=== PATIENT | male | born 1995 | race Caucasian/White ===

== ENCOUNTER 2019-03-08 19:49 | Emergency (ER) | payer MEDICAID, SELFPAY ==
[2019-03-08 19:51] VITALS: BP 140/78; PULSE 77; RESP 16; TEMP 36.6; O2SAT 97; BMI 22.6
--- NOTE | 2019-03-08 20:06 | ED.DCSUM_ITS ---
History of Present Illness Chief Complaint: Substance Abuse Detail of Chief Complaint: Snorted heroin and methamphetamine Informant: Patient Limited by: Stupor Onset: Today, Month(s) - States he has been using illicit drugs for the last 5 months Context: Sudden Onset Timing: Continuous Quality: Arrived by ambulance for drug use. Location: Unknown Current Severity: Moderate Maximum Severity: Moderate Worsened by: Presumed heroin Relieved by: IV Narcan Associated Symptoms: Somnolence and disorientation Narrative: Patient is a 23-year-old male who is slurring his words. Requires constant st imulation and redirection to answer simple questions. He acknowledged he snorted methamphetamine and heroin tonight. He gets his drugs from multiple suppliers. He states he does not inject. History is limited because of somnolence. He has beck on his skin. He was again question whether he is injecting. He admits to picking his skin. Prior similar symptoms: No Recent Illness/Hospitalization: No - Past Medical History (1) History of illicit drug use Status: Acute Past Medical History - Allergies and Home Meds Allergies/Adverse Reactions: Allergies No Known Allergies Allergy (Verified 03/08/19 19:50) Primary Care Physician: Care Physician,No Primary [Primary Care Provider] - Surgical History: no surgical history Lives: Alone Smoking Status: Current every day smoker Alcohol: Rare Drugs: Heroin, - - Methamphetamine Review of Systems ROS: Unable to Obtain - Limited secondary to somnolence from illicit drug use General: Denies: Fever Eyes: Denies: Visual changes - bilaterally, Blurred Vision - bilaterally ENT: Denies: Rhinorrhea, Sore throat Cardiovascular: Denies: Chest pain Respiratory: Denies: Dyspnea, Cough Gastrointestinal: Reports: Nausea. Denies: Abdominal pain, Vomiting Musculoskeletal: Denies: Myalgias, Arthralgias Skin: Reports: Wounds Neurological: Denies: Headache Allergy: Denies: Uticaria, Swelling of the mouth, Swelling of the tongue Physical Exam Vital Signs/Narrative: Vital Signs Temp Pulse Resp BP Pulse Ox 03/08/19 19:51 97.9 F 77 16 140/78 H 97 Inital Vital Signs reviewed: Yes General: Well nourished, Well developed, No Acute Distress Head: Normocephalic, Atraumatic Eyes: - - Pulls are 1 to 2 mm in size.. Negative for: Pale conjunctiva, Scleral icterus ENT: Moist mucous membranes, No rhinorrhea, TM's clear Neck: Supple, Nontender, No lymphadenopathy, No JVD Cardiovascular: Regular rate, Regular rhythm, No murmurs, Normal S1, Normal S2. Negative for: Murmur Respiratory: No distress, CTA bilaterally, Chest nontender Abdomen: Soft, Nontender, Nondistended, Normal bowel sounds Extremities: Nontender, No edema Skin: Normal color, No rash, - - He has multiple areas on his extremities and torso that he picked at. There is no evidence infection. No tract beck were noted. Neurological: Cranial nerves II-XII grossly intact, Normal Strength, Normal Sensation, Normal DTR. Negative for: Alert, Oriented x3, Normal Gait Psychological: - - Difficult to assess secondary to decreased level of consciousness Diagnostic/Tx/Re-eval - Medical Decision Making History of snorting heroin pinpoint pupils decreased responsiveness IV was established and he received 1 mg of Narcan. Patient awoke with Narcan. He did not wait for interview with case management. I was informed by charge nurse that he has left prior to receiving his home- going instructions. ED Disposition - Plan for ED Patient: Disposition: Home or Assisted Living Diagnosis: Accidental heroin overdose, Methamphetamine abuse Instructions: OVERDOSE, Opiate Referrals: Care Physician,No Primary [Primary Care Provider] - [facility] [STAFF PHYSICIAN] - As soon as possible
[2019-03-08] MEDS: Naloxone 2 MG/2 ML Syringe 1 MG IV (20:08)
--- NOTE | 2019-03-08 22:44 | CM.ED ---
Social Work Consult: Substance Abuse Informant: Dr. Pfeiffer Patient left before this social services director was able to meet with patient. Patient left without discharge information as well per nursing staff. Cristina RICHARDSON, JOSE
== END 2019-03-08 21:58 | disposition home or self-care (01) ==
PROVIDERS: Emergency Provider Emergency Medicine
DX: T40.1X1A Poisoning by heroin, accidental (unintentional), initial encounter (principal); R40.0 Somnolence; R47.81 Slurred speech; R41.0 Disorientation, unspecified; F11.10 Opioid abuse, uncomplicated; Y92.9 Unspecified place or not applicable; F15.10 Other stimulant abuse, uncomplicated; F17.200 Nicotine dependence, unspecified, uncomplicated
CPT/HCPCS: 96374; 99285; A4216